=== PATIENT | male | born 1950 | race Caucasian/White ===

== ENCOUNTER 2021-01-11 12:38 | Observation (INO) | payer MEDICARE, OTHER ==
[~2021-01-11] VITALS: Ht 177.8 cm; Wt 83.0 kg
[~2021-01-11 12:38] MED LIST: ASPIR 8181 M1 PO; CENTRUM SILVER1 EAC2 PO; COUMADIN7.5 MG PO; EFFIENT10 MG PO; FISH OIL 1,001000 M2 PO; IMDUR 30 MG TAB30 M1 PO; JANTOVEN10 MG PO; LIPITOR10 MG PO; LISINOPRIL5 MG PO; NITROGLYCERIN0.4 MG SUBLING; PROBIOTIC1 EAC1 PO; TOPROL XL25 MG
[2021-01-11 12:58] VITALS: BP 123/70
[2021-01-11 13:09] LABS: HEMATOCRIT 38.9 % (42.0-52.0); HEMOGLOBIN 13.7 gm/dL (14.0-18.0); MCH 34.6 pg (26.0-34.0); MCHC 35.2 g/dL (28.0-37.0); MCV 98.4 fL (80.0-100.0); RBC 3.95 mil/uL (4.50-6.00); RDW-CV 15.7 % (10.5-14.5); WBC 4.8 thou/uL (4.0-11.0)
[2021-01-11 13:18] LABS: ANION GAP 9 mmol/L (7-16); BUN 15 mg/dL (7-18); CALCIUM 9.6 mg/dL (8.5-10.1); CHLORIDE 104 mmol/L (98-107); CO2 29 mmol/L (21-32); CREATININE 0.8 mg/dL (0.6-1.3); GLUCOSE 90 mg/dL (70-99); POTASSIUM 3.8 mmol/L (3.5-5.1); SODIUM 142 mmol/L (136-145)
[2021-01-11 13:22] LABS: APTT 33.3 Seconds (25.0-31.3); INR 2.4
[2021-01-11] MEDS ORDERED: WARFARIN SODIUM10 MG PO (13:24)
[2021-01-11 13:25] LABS: ALBUMIN 4.3 g/dL (3.4-5.0); ALKALINE PHOSPHATASE 66 U/L (46-116); CHOLESTEROL 129 mg/dL (<200); HDL CHOLESTEROL 75 mg/dL (>40); LDL CHOLESTEROL 39 mg/dL (<100); SGOT 23 U/L (15-37); SGPT 43 U/L (30-65); TC:HDL 1.7 Ratio (Not establshd); TOTAL PROTEIN 7.4 g/dL (6.4-8.2); TRIGLYCERIDE 75 mg/dL (<150); VLDL 15 mg/dL (<40)
[2021-01-11 13:27] LABS: SERUM ASSESSMENT Clear
[2021-01-11] MEDS ORDERED: COD LIVER OIL1 EAC4 PO (13:27)
[2021-01-11 16:50] VITALS: BP 106/64
[2021-01-11 16:54] VITALS: BP 96/56
[2021-01-11 17:20] VITALS: BP 106/71
--- NOTE | 2021-01-11 17:26 | CARD ---
[address] [address] CARDIAC CATH REPORT Name: ARCADIO KIDD Room: [address] M.RPatrick#: [id number] Admission: 01/11/21 Attend Phys: Abelardo Salas MD, Discharge: Date of : 48 Report #: [id number] THIS REPORT FOR: cc: Taina Rudolph MD, Cabot L. MD ~ Abelardo Salas MD [facility] APPROVED REPORT Study performed: 01/11/2021 13:16:00 Patient Details Patient Status: Out-Patient Room #: The patient is a 70 year-old male Event Personnel Abelardo Salas Accounts Payable Administrator, Caden Downs RN RN, Arcadio Tyson CERTIFIED MARINE MECHANIC ScrubJavon Jessie RTR Monitor Procedures Performed Art Access - R femoral artery Left Heart Cath Coronaries, Bypass Grafts ELSI w/Atherectomy Single RCA Hemostasis w/ Angioseal Indication Unstable angina Risk Factors Hypercholesterolemia Previous Procedures/Diagnoses Previous CABGPrevious PCI, Previous ND Admission/Lab Medications/Medications given during procedure Fentanyl IV 25 mcg, Midazolam (Versed) IV 2 mg, Lidocaine Subcut 14 ml, Oxygen Nasal cannula 2 l per min, 0.9% Sodium Chloride IV 75 ml per hr, Midazolam (Versed) IV 1 mg, 0.9% Sodium Chloride IV 150 ml per hr, Angiomax IV 12 ml, Angiomax Drip IV 27.83 ml per hr, 60 mg effient PO Procedure Narrative The patient was brought electively to the Cardiac Catheterization Laboratory and was prepped and draped in a sterile manner. The right femoral was infiltrated with 2% Lidocaine subcutaneous anesthesia. IV conscious sedation was used [place] [address] CARDIAC CATH REPORT Name: ARCADIO KIDD Room: [address]#: [id number] Admission: 01/11/21 Attend Phys: Abelardo Salas MD, Discharge: Date of : 48 Report #: [id number] monitoring and was performed in the presence of a registered nurse who was an independent trained observer other than the physician performing the procedure. A [place] 6 FR sheath was inserted into the right femoral artery. Coronary angiography was performed using coronary diagnostic catheters. The right coronary system was accessed and visualized with a Diagnostic 6 Fr JR4 catheter. The left coronary system was accessed and visualized with a Diagnostic 6 Fr JL 4 catheter. The left ventricle was accessed and visualized with a Diagnostic 6 Fr Pigtail catheter. Left ventricular/Aortic Valve gradient assessed via catheter pullback. Left ventriculogram was performed in PALM projection. Pre-demployment femoral angiogram was performed . Closure device was deployed with a Fr Angioseal STS 6Fr. The patient tolerated the procedure well and there were no complications associated with the procedure. A hematoma occurred. The SVG graft to the RCA was accessed and visualized with a Diagnostic 6 Fr AR 1 Mod catheter. The atretic GONZALEZ graft was flushed filled with a 6 [place] JR4 catheter. Intraoperative Conscious Sedation Sedation start time: 13:39 Case end Time: 15:42 Fentanyl 75 mcg Versed 4 mg Fluoro Time: 51.8 minutes Dose: DAP 454164 cGycm2 5187 mGy Contrast Type and Amount: Visipaque 720 ml [place] Artery Percent Stenosis 1. Widely patent saphenous vein graft to a prominent posterior descending branch of the dominant right core artery with 30% proximal graft narrowing 2. Atraumatic GONZALEZ graft Diagnostic Cath Left Main Widely patent stents with 0% narrowing LAD Widely patent proximal stents with 30% proximal LAD narrowing Circumflex Nondominant vessel with 40% mid vessel narrowing Right Coronary Large dominant vessel with 75% ostial narrowing sequential 90% mid vessel stenoses 90% distal stenosis just beyond the acute margin and total occlusion of the posterolateral branch of the dominant right coronary [place] [address] CARDIAC CATH REPORT Name: ARCADIO KIDD Davis Room: [address] M.R.#: [id number] Admission: 01/11/21 Attend Phys: Abelardo Salas MD, Discharge: Date of : 48 Report #: [id number] The left ventricle is normal in size with normal contractility. The left ventricular ejection fraction is estimated to be 60-65%. Left ventricular wall motion abnormalities are not present. There is no mitral insufficiency. Hemodynamics The aortic pressure is 99/47 mmHg with a mean of 71 mmHg. The left ventricular pressure is 98/-5 mmHg with a mean of mmHg. The left ventricular end diastolic pressure is 8 mmHg. There was no gradient across the aortic valve upon pullback. PCI Technique Lesion Anticoagulation was achieved with Angiomax Drip. Patient was preloaded with Angiomax IV 12 ml. Percutaneous coronary intervention was performed on the mid right coronary artery. The lesion stenosis prior to intervention was 90% with NISH 3 flow. A 6FR 3DRC SH Guide Catheter was used to engage the right ostium. A IG: BMW 190cm Interventional Guidewire was used to cross the lesion. BALLOON DILATION A Balloon catheter Mini Trek RX 2.0 X 12 was inserted and inflated up to 17.00atm for 9seconds. A balloon catheter Trek 2.5 X 12 was inserted and inflated up to 18 RASHMI for 8 seconds and 20 RASHMI for 8 seconds. A balloon catheter NC Trek 3.0 X 12 was inserted and inflated up to 18 RASHMI for 12 seconds and 22 RASHMI for 8 seconds. A balloon catheter Trek RX 3.0 X 12 was inserted and inflated up to 20 RASHMI for 13 seconds and 22 RASHMI for 11 seconds. STENT DEPLOYMENT A drug-eluting stent [place] RX Stent 3.0X15mm was inserted and inflated up to 15.00atm for 9seconds. POST STENT DEPLOYMENT BALLOON DILATION A Balloon catheter EA Trek RX 3.0 X 12 was inserted and inflated up to 18.00atm for 7seconds. Additional Inflation: 20.00atm for 10seconds. A balloon catheter NC Trek 2.5 X 8 was inserted and inflated up to 22 RASHMI for 13 seconds and 26 RASHMI for 9 seconds. A balloon catheter NC Trek 2.0 X 8 was inserted and inflated up to 18 RASHMI for 10 seconds and 22 RASHMI for 9 seconds. A cutting balloon catheter Angiosculpt PTCA 2.0 X 6 was inserted and inflated up to 18 RASHMI for 12 seconds, 22 RASHMI for 16 seconds, and 24 RASHMI for 11 seconds.(This portion of the procedure was performed on the mid right coronary artery just distal to the stented segment) Final angiography reveals 30 % stenosis with NISH [address] [address] CARDIAC CATH REPORT Name: ARCADIO KIDD Davis Room: [address] M.R.#: [id number] Admission: 01/11/21 Attend Phys: Abelardo Salas MD, Discharge: Date of : 48 Report #: [id number] flow. COMMENTS The PCI was technically complex by virtue of severe diffuse calcification of the right coronary artery requiring significant lesion preparation. A Airphrame wire system was used and I performed atherectomy at multiple sites as well as angioplasty and ultimately stenting of the midportion of the vessel PCI Technique Lesion 2 Percutaneous Coronary Intervention was performed on the distal right coronary artery. Patient was preloaded with Angiomax IV 12 ml. The lesion stenosis prior to intervention was 90% with NISH 2 flow. A 6FR 3DRC SH Guide Catheter was used to engage the right ostium. A IG: [place] 190cm Interventional Guidewire was used to cross the lesion. Balloon Dilation A Balloon catheter Mini Trek RX 1.5 X 12 was inserted and inflated up to 17.00atm for 8seconds. Additional Inflation: 20.00atm for 7seconds. A balloon catheter Trek RX 2.25 X 8 was inserted and inflated up to 16 RASHMI for 10 seconds, 18 RASHMI for 7 seconds, and 20 RASHMI for 8 seconds. A balloon catheter Trek RX 2.5 X 12 was inserted and inflated up to 14 RASHMI for 8 seconds and 18 RASHMI for 8 seconds. Final angiography reveals 30 % stenosis with NISH 3 flow. PCI Technique Lesion 3 Percutaneous Coronary Intervention was performed on the proximal right coronary artery. Patient was preloaded with Angiomax IV 12 ml. The lesion stenosis prior to intervention was 75% with NISH 3 flow. A 6FR 3DRC SH Guide Catheter was used to engage the right ostium. A IG: [place] 190cm Interventional Guidewire was used to cross the lesion. Balloon Dilation A Balloon catheter NC TREK RX 3.5X12 was inserted and inflated up to 16.00atm for 8seconds. Additional Inflation: 18.00atm for 10seconds. A cutting balloon Angiosculpt PTCA 3.0 X 10 mm was inserted and inflated up to 12 RASHMI for 10 seconds. Final angiography reveals 20 % stenosis with NISH 3 [place] [address] CARDIAC CATH REPORT Name: ARCADIO KIDD Room: [address] Xiomy#: [id number] Admission: 01/11/21 Attend Phys: Abelardo Salas MD, Discharge: Date of : 48 Report #: [id number] 1. Severe coronary artery disease characterized by the following: A widely patent left main coronary stents B widely patent proximal LAD stents with 30% proximal LAD narrowing C nondominant circumflex with 40% mid vessel narrowing D dominant right coronary artery with 75% ostial proximal narrowing, sequential 90% mid vessel stenoses, 90% stenosis just distal to the acute margin and total occlusion of the posterior lateral branch 2. Graft study characterized by the following: A patent saphenous vein graft to the posterior descending branch of the dominant right coronary artery with 30% proximal graft narrowing B atretic GONZALEZ graft 3. Normal left ventricular systolic function, estimated ejection fraction being 60 - 65% 4. Normal left-sided hemodynamic study 5. Successful angioplasty atherotomy/atherectomy and stenting of the mid right coronary artery with 30% residual narrowing and NISH-3 flow to the distal vessel 5. Successful PTCA at the site of 90% distal right coronary stenosis with 30% residual narrowing and NISH-3 flow to the distal vessel approach 6. Successful atherotomy/atherectomy and angioplasty of the ostial right coronary artery with 20% residual narrowing and NISH-3 flow to the distal vessel Recommendations Cardiac Risk Reduction Program Aggressive Medical Therapy Medications [place] [address] CARDIAC CATH REPORT Name: ARCADIO KIDD Room: [address] [id number] Admission: 01/11/21 Attend Phys: Abelardo Salas MD, Discharge: Date of : 48 Report #: [id number] Diagnostic Cath Approved by: Abelardo Salas MD Date/Time: 01/11/2021 17:15:57 <ELECTRONICALLY SIGNED> By: Abelardo Salas MD, [facility] 01/11/21 1726 1726 1726Jolaly Salas MD, FACC /INF
--- NOTE | 2021-01-11 17:32 | EKG ---
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: : 1950 Requested By: Abelardo Salas Order Number: [id number] Reading MD: Abelardo Salas Measurements Intervals [place] Rate: 67 P: 56 NC: 218 QRS: -43 QRSD: 102 T: 43 QT: 432 QTc: 456 Interpretive Statements Sinus rhythm Borderline prolonged NC interval Probable left atrial enlargement Left axis deviation RSR' in V1 or V2, right VCD Compared to ECG 05/29/2017 08:04:36 Left-axis deviation persists Electronically Signed On 01-11-2021 17:32:24 FINISHING AREA OPERATOR by Abelardo Salas [email or web address] <ELECTRONICALLY SIGNED> By: Abelardo Salas MD, FAC 01/11/21 1732 1324 1324 Abelardo Salas MD, FAC /EPI
--- NOTE | 2021-01-11 17:33 | EKG ---
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: ALVERTO : 1950 Requested By: Abelardo Salas Order Number: [id number] Reading MD: Abelardo Salas Measurements Intervals [place] Rate: 53 P: 61 VA: 241 QRS: -50 QRSD: 101 T: 43 QT: 483 QTc: 454 Interpretive Statements Sinus rhythm Prolonged VA interval LAD, consider left anterior fascicular block Abnormal R-wave progression, early transition Compared to ECG 01/11/2021 13:24:37 Left-axis deviation persists Electronically Signed On 01-11-2021 17:33:21 SUCCESSFACTORS CONSULTANT by Abelardo Salas [email or web address] <ELECTRONICALLY SIGNED> By: Abelardo Salas MD, FAC 01/11/21 1733 171 171 Abelardo Salas MD, FAC /EPI
[2021-01-11 17:58] VITALS: BP 114/62
[2021-01-11 18:55] VITALS: BP 101/60
[2021-01-12] VITALS: BP 96/55
[2021-01-12 04:00] VITALS: BP 99/56
[2021-01-12 04:36] LABS: HEMATOCRIT 32.4 % (42.0-52.0); MCH 34.5 pg (26.0-34.0); MCHC 35.2 g/dL (28.0-37.0); MPV 7.9 fl. (7.2-11.1); RBC 3.3 mil/uL (4.50-6.00); RDW-CV 15.8 % (10.5-14.5); WBC 4.5 thou/uL (4.0-11.0)
[2021-01-12 04:49] LABS: INR 2.1; PROTIME 21.5 Seconds (9.20-11.50)
[2021-01-12 04:56] LABS: HEMOGLOBIN 11.4 gm/dL (14.0-18.0)
[2021-01-12 05:00] LABS: ALBUMIN 3.2 g/dL (3.4-5.0); CALCIUM 8.5 mg/dL (8.5-10.1); CREATININE 0.9 mg/dL (0.6-1.3); POTASSIUM 3.8 mmol/L (3.5-5.1); TOTAL BILIRUBIN 0.9 mg/dL (<0.1-1.0); TOTAL PROTEIN 5.8 g/dL (6.4-8.2); TROPONIN-I LEVEL 0.46 ng/mL (<0.06)
[2021-01-12 08:00] VITALS: BP 114/70
[2021-01-12] MEDS ORDERED: EFFIENT10 MG PO (08:41)
--- NOTE | 2021-01-12 09:08 | EKG ---
[place] [address] ELECTROCARDIOGRAM REPORT Name: ARCADIO KIDD Room: [address]#: [id number] Admission: 01/11/21 Attend Phys: Celeste Mosquera Discharge: Date of : 48 Date of Service: 01/12/21 0408 Report #: [id number] THIS REPORT FOR: //name// [facility] Test Date: 2021-01-12 Test Time: 04:08:51 Pat Name: ARCADIO KIDD Department: Room: [address] Gender: M Teacher Cclc: CALIN : 1950 Requested By: Abelardo Salas Order Number: [id number] Reading MD: Lito Cobb Measurements Intervals [place] Rate: 59 P: 57 OR: 242 QRS: -43 QRSD: 104 T: 44 QT: 453 QTc: 449 Interpretive Statements Sinus rhythm Prolonged OR interval Left axis deviation Abnormal R-wave progression, early transition Compared to ECG 01/11/2021 17:13:23 Left-axis deviation now present Electronically Signed On 01-12-2021 9:08:12 FINISHING SUPERVISOR by Lito Cobb [email or web address] <ELECTRONICALLY SIGNED> By: Lito Cobb MD, FAC 01/12/21907 7 7 Lito Cobb MD, [facility] /EPI
[2021-01-12 11:25] VITALS: BP 114/70
[2021-01-12 11:56] VITALS: BP 114/70
--- NOTE | 2021-01-13 09:11 | H ---
[address] [address] HISTORY AND PHYSICAL Name: ARCADIO KIDD Davis Room: [address] Tin Stauffer#: [id number] Admission: 01/11/21 Attend Phys: Abelardo Salas MD, Discharge: 01/12/21 Date of : 48 Report #: [id number] THIS REPORT FOR: cc: Taina Rudolph MD, Cabot L. MD ~ Abelardo Salas MD LOCATED WITHIN [facility] DATE OF SERVICE: 01/11/2021 HISTORY OF PRESENT ILLNESS: The patient is a very pleasant 70-year-old male with aggressive and complex coronary artery disease, history of prior myocardial infarction and factor V Leiden with a history of deep vein thrombosis and pulmonary emboli. The patient is status post multiple prior PCIs, most recently in 05/2017 to the ostium of the [place] right coronary. He had an atretic GONZALEZ graft to find and widely patent stents in the left main were defined. I performed a PCI to the ostium of the [place] right coronary artery. He did have a patent vein graft to the posterior descending branch of the right coronary artery, which was not approached in that setting, as there was no hemodynamically significant stenosis. Recently, he has noted exertional chest discomfort, typical of his prior angina. This comes on with moderate exertion and remits with rest after several minutes. He has had no protracted bouts of pain and episodes are remitted with rest. This is different from prior assessment when I saw him in 06/2020. He has been compliant with aspirin 81 mg two tablets daily, fish oil 1000 mg daily, lisinopril 5 mg daily, metoprolol succinate 25 mg daily, vitamin tablets, p.r.n. sublingual nitroglycerin, and warfarin in varying dose scheduled contingent on INRs with most recent value being 2.5. PAST MEDICAL HISTORY: Remarkable for coronary artery disease, prior coronary artery bypass grafting, factor V Leiden, DVT of the left lower extremity, and pulmonary emboli. He has also had a history of paroxysmal atrial fibrillation. SOCIAL HISTORY: The patient is . He is a nonsmoker. FAMILY HISTORY: Unremarkable. REVIEW OF SYSTEMS: Remarkable for the following; LOWER EXTREMITIES: He has chronic swelling of the left lower extremity in the context of chronic DVT, reflecting that extremity and is chronically anticoagulated [place] [address] HISTORY AND PHYSICAL Name: ARCADIO KIDD Davis Room: [address] Xiomy#: [id number] Admission: 01/11/21 Attend Phys: Abelardo Salas MD, Discharge: 01/12/21 Date of : 48 Report #: [id number] CARDIOVASCULAR: He has a recent description of chest discomfort, typical of angina, brought on by exertion and relieved by rest. PHYSICAL EXAMINATION: GENERAL: Reveals a fit-appearing elderly male. VITAL SIGNS: Blood pressure is 118/65, pulse rate is 64, respirations are 18 per minute. NECK: Jugular venous pressure is normal. Carotids are 1-2+. CHEST: Clear. CARDIAC: Reveals normal first and second heart sounds without rubs, murmurs or gallops. ABDOMEN: Soft. EXTREMITIES: Remarkable for modest swelling of the left calf with no redness or tenderness. There are good pulses femorally, medially and in the radial arteries bilaterally. IMPRESSION: 1. Recrudescence of angina following an unstable pattern. 2. Coronary artery disease, status post coronary artery bypass grafting and percutaneous coronary interventions. 3. Factor V Leiden. 4. History of deep vein thrombosis, reflecting left lower extremity with pulmonary emboli in that context. 5. Hypertension. 6. Hypercholesterolemia. 7. Paroxysmal atrial fibrillation. RECOMMENDATIONS: Given the aforementioned clinical scenario with recrudescence of angina following a course of clinical instability, I would recommend recatheterization to document current coronary anatomy and prospects for therapeutic modification. Procedure and risks have been discussed with the patient. Critical care time is 35 minutes, from 11:55 to 12:30. <ELECTRONICALLY SIGNED> By: Abelardo Salas MD, FACC 01/13/21 0911 1231 [id number] Salas MD, FACC /nt
--- NOTE | 2021-01-13 09:12 | D ---
[address] [address] DISCHARGE SUMMARY Name: ARCADIO KIDD Davis Room: [address] Tin Stauffer#: [id number] Admission: 01/11/21 Attend Phys: Abelardo Salas MD, Discharge: 01/12/21 Date of : 48 Report #: [id number] THIS REPORT FOR: cc: Taina Rudolph MD, Cabot L. MD ~ Abelardo Salas MD [facility] DATE OF SERVICE: 01/12/2021 FINAL DISCHARGE DIAGNOSES: 1. Unstable angina. 2. Coronary artery disease. 3. Status post remote myocardial infarction. 4. Hypertension. 5. Factor V Leiden. 6. History of deep vein thrombosis with pulmonary emboli. 7. History of paroxysmal atrial fibrillation. PROCEDURES: 01/11/2021 -- Left heart catheterization, left ventriculography, selective coronary arteriography, aortic coronary saphenous vein bypass graft study, GONZALEZ graft study, and percutaneous coronary intervention to the right coronary artery with atherectomy, angioplasty, and stenting of that vessel. 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 He has a history of coronary artery disease, status post remote myocardial infarction and prior PCIs. He has factor V Leiden. In that context is a DVT of the left lower extremity and pulmonary emboli. He is chronically anticoagulated. Recently, he has noted recrudescence of chest pain with exertion, typical of his angina. This is increased in frequency and severity. Episodes remit with rest. He has underlying hypertension, hyperlipidemia and factor V Leiden aforementioned. In the context of increasing angina, I recommend proceeding with cardiac catheterization, which was undertaken on 01/11/2021. That study revealed significant coronary artery disease with a widely patent left main and proximal LAD stent with 30% proximal LAD narrowing, 40% mid circumflex narrowing, and 75% ostial proximal dominant right coronary narrowing with a 90% sequential mid right coronary stenosis and 90% stenosis just beyond the acute margin. There was a widely patent vein graft to the posterior descending branch of the right coronary artery without significant filling of the posterolateral branch. The previously constructed GONZALEZ graft was atretic. In this context, I performed complex PCI on the right coronary artery with atherectomy and angioplasty of the ostial proximal right coronary artery; [place] [address] DISCHARGE SUMMARY Name: ARCADIO KIDD Room: [address] Tin Stauffer#: [id number] Admission: 01/11/21 Attend Phys: Abelardo Salas MD, Discharge: 01/12/21 Date of : 48 Report #: [id number] atherectomy, angioplasty, and deployment of drug-eluting stent in the mid right coronary artery and angioplasty of the distal right coronary stenosis. Residual narrowings were 20, 30 and 30 in the proximal, mid and distal portion with NISH-3 flow of the distal vessel. Troponin nick minimally to 0.46. Sodium is 142, potassium 3.8, BUN 13, creatinine 0.9, glucose 85. White blood cell count 4500, hemoglobin 11.4, platelets 83,000. The patient had good hemostasis at the right femoral site of catheterization. DISCHARGE MEDICATIONS: He was discharged to home on prasugrel 10 mg daily, multivitamin ____ Centrum Silver 1 tablet daily, fish oil 1000 mg daily, p.r.n. sublingual nitroglycerin, aspirin 162 mg daily, atorvastatin 10 mg daily, lisinopril 5 mg daily, metoprolol succinate 25 mg daily, warfarin 12 mg daily to be resumed this evening with an INR of 2.1 this a.m., cod liver oil 1 tablet daily. I will plan to see the patient in followup at our [facility] office on 02/16/2021 at 1400 hours. Therefore, the patient is discharged to home in stable condition on the aforementioned medications with followup as described above. <ELECTRONICALLY SIGNED> By: Abelardo Salas MD, [facility] 01/13/21 0912 1053 [id number] Salas MD, [facility] /nt
== END 2021-01-12 12:10 | disposition home or self-care (01) ==
LOC: M.CL 12:38 → M.TBA-CV 16:00 → M.2W 16:00
PROVIDERS: ADMIT Internal Medicine; ATTEND Internal Medicine
DX: I25.110 Atherosclerotic heart disease of native coronary artery with unstable angina pectoris (principal); I10 Essential (primary) hypertension; I48.0 Paroxysmal atrial fibrillation; D68.51 Activated protein C resistance; I25.2 Old myocardial infarction; Z79.82 Long term (current) use of aspirin; Z79.899 Other long term (current) drug therapy; Z20.822 Contact with and (suspected) exposure to COVID-19; Z86.718 Personal history of other venous thrombosis and embolism; Z79.01 Long term (current) use of anticoagulants